=== PATIENT | male | born 1960 | race Caucasian/White ===

== ENCOUNTER 2017-11-21 19:32 | Inpatient (IN) | payer OTHER ==
[~2017-11-21] VITALS: Ht 172.7 cm; Wt 101.1 kg
[~2017-11-21 19:32] MED LIST: ASPIR-LOW81 M1
[2017-11-21 20:41] LABS: HEMATOCRIT 39.9 % (38.0-50.0); HEMOGLOBIN 14.8 G/DL (12.5-16.6); MCH 34.5 PG (29.0-34.0); MCHC 37.1 G/DL (30.0-36.0); PLATELET COUNT 203 K/uL (156-360); RBC DIS.WIDTH-CV 12.5 % (11.8-14.6); RBC DIS.WIDTH-SD 42.6 % (39-53); RED BLOOD COUNT 4.29 M/uL (4.00-5.50); WHITE BLOOD COUNT 6.9 K/uL (4.1-10.2)
[2017-11-21 20:51] LABS: PTT 26.1 SEC (25-37)
[2017-11-21 20:53] LABS: ALBUMIN 4.1 g/dL (3.2-4.8)
[2017-11-21 20:54] LABS: CHLORIDE 107 mEq/L (99-109); POTASSIUM 4.4 mEq/L (3.7-5.4); SODIUM 139 mEq/L (136-147)
[2017-11-21 20:56] LABS: GLUCOSE 91 mg/dL (70-99); TOTAL PROTEIN 7.6 g/dL (6.4-8.3)
[2017-11-21 20:58] LABS: TOTAL BILIRUBIN 0.8 mg/dL (0.0-1.0)
[2017-11-21 20:59] LABS: ALKALINE PHOSPHATASE 74 IU/L (3-129)
[2017-11-21 21:00] LABS: CREATININE 1.3 mg/dL (0.6-1.3); GFR ESTIMATE (CALCULATED) > 59 mL/min/ (58.99-99999)
[2017-11-21 21:01] LABS: AST (GOT) 46 IU/L (2-34); UREA NITROGEN (BUN) 18 mg/dL (9-23)
[2017-11-21 21:02] LABS: ALT (GPT) 35 IU/L (3-49)
[2017-11-21 21:03] LABS: LIPASE 26 U/L (1.0-51.0)
[2017-11-21 21:11] LABS: TROP-I INTERPRETATION NEGATIVE; TROPONIN-I < 0.01 ng/mL (0.0-0.30)
[2017-11-21 22:24] LABS: APPEARANCE CLEAR ((CLEAR)); BILIRUBIN NEGATIVE; BLOOD NEGATIVE; COLOR COLORLESS ((YELLOW)); GLUCOSE (STRIP) NEGATIVE; KETONES NEGATIVE; LEUKOCYTES NEGATIVE; NITRITE NEGATIVE; PROTEIN (STRIP) NEGATIVE; SPECIFIC GRAVITY 1.004 (1.000-1.030); UROBILINOGEN 0.2 MG/DL (0.2-1.0)
[2017-11-21 22:33] LABS: AMPHETAMINE NEGATIVE (500 ng/mL); BARBITURATES NEGATIVE (200 ng/mL); BENZODIAZEPINES NEGATIVE (150 ng/mL); BUPRENORPHINE NEGATIVE (10 ng/mL); COCAINE NEGATIVE (150 ng/mL); METHADONE NEGATIVE (200 ng/mL); METHAMPHETAMINE NEGATIVE (500 ng/mL); OPIATES (MORPHINE) NEGATIVE (100 ng/mL); OXYCODONE NEGATIVE (100 ng/mL); PHENCYCLIDINE NEGATIVE (25 ng/mL); PROPOXYPHENE NEGATIVE (300 ng/mL); THC CANNABINOIDS NEGATIVE (50 ng/mL); TRICYCLIC ANTIDEPRESSANTS NEGATIVE (300 ng/mL)
[2017-11-21] MEDS ORDERED: NAPROXEN500 MG PO (22:54)
[2017-11-22 00:21] VITALS: BP 148/101
[2017-11-22 02:51] LABS: TROP-I INTERPRETATION NEGATIVE; TROPONIN-I < 0.01 ng/mL (0.0-0.30)
[2017-11-22 03:18] LABS: HDL CHOLESTEROL 57 MG/DL (Desirable>=40); LDL CHOLESTEROL 86 mg/dL (Desirable<100); NON-HDL CHOLESTEROL 111 mg/dL (Desirable<160); TOTAL CHOLESTEROL 168 mg/dL (Desirable<200); TRIGLYCERIDES 127 MG/DL (Normal: <150)
[2017-11-22 04:20] VITALS: BP 122/72
[2017-11-22 08:00] VITALS: BP 131/78
[2017-11-22 09:55] LABS: TROP-I INTERPRETATION NEGATIVE; TROPONIN-I < 0.01 ng/mL (0.0-0.30)
[2017-11-22 10:05] LABS: HEMOGLOBIN A1c (GLYCOHEMOGLOB) 4.4 % (Below 5.7)
[2017-11-22 12:13] VITALS: BP 132/83
[2017-11-22 15:24] VITALS: BP 148/84
[2017-11-22 19:25] VITALS: BP 140/83
[2017-11-23 00:02] VITALS: BP 143/83
[2017-11-23 03:31] VITALS: BP 147/85
[2017-11-23 06:05] LABS: BASOPHIL (%) 1.1 % (0-1); BASOPHIL COUNT 0.1 K/uL (0-0.1); EOSINOPHIL COUNT 0.3 K/uL (0-0.3); HEMATOCRIT 40.8 % (38.0-50.0); HEMOGLOBIN 14.4 G/DL (12.5-16.6); IMMATURE GRANULOCYTE (%) 1.9 % (0.0-0.7); LYMPHOCYTE (%) 25.5 % (15-42); LYMPHOCYTE COUNT 1.4 K/uL (1.0-2.8); MCH 32.9 PG (29.0-34.0); MCHC 35.3 G/DL (30.0-36.0); MCV 93.2 FL (86-99); MONOCYTE COUNT 0.6 K/uL (0-0.8); NEUTROPHIL (%) 55.5 % (45-76); NEUTROPHIL COUNT 3.1 K/uL (1.8-6.4); PLATELET COUNT 180 K/uL (156-360); RBC DIS.WIDTH-CV 12.5 % (11.8-14.6); RBC DIS.WIDTH-SD 42.5 % (39-53); RED BLOOD COUNT 4.38 M/uL (4.00-5.50); WHITE BLOOD COUNT 5.7 K/uL (4.1-10.2)
[2017-11-23 06:45] LABS: CHLORIDE 103 MEQ/L (99-109); CREATININE 1.3 MG/DL (0.6-1.3); GFR ESTIMATE (CALCULATED) > 59 mL/min/ (58.99-99999); GLUCOSE 89 mg/dL (70-99); POTASSIUM 4.3 MEQ/L (3.7-5.4); SODIUM 138 MEQ/L (136-147); UREA NITROGEN (BUN) 19 mg/dL (9-23)
[2017-11-23 07:02] VITALS: BP 137/72
[2017-11-23] MEDS ORDERED: ASPIRIN EC325 MG PO (08:05)
[2017-11-23] MEDS ORDERED: ATORVASTATIN CA80 MG PO (08:05)
[2017-11-23] MEDS ORDERED: LISINOPRIL5 MG PO (08:05)
[2017-11-23] MEDS ORDERED: APRESOLINE10 MG PO (08:08)
== END 2017-11-23 11:46 | disposition home or self-care (01) | DRG 65 ==
LOC: EME → EDBD 19:32 → EDOF 23:01 → 5SOUTH 23:01 → ENRESERV 23:10 → 5SOUTH 11-22 00:12
PROVIDERS: Emergency Medicine; Internal Medicine; Physician Assistant Medical
DX: I63.40 Cerebral infarction due to embolism of unspecified cerebral artery (principal); H53.461 Homonymous bilateral field defects, right side; I16.1 Hypertensive emergency; I10 Essential (primary) hypertension; F07.81 Postconcussional syndrome; F10.10 Alcohol abuse, uncomplicated; E04.1 Nontoxic single thyroid nodule; E66.3 Overweight; Z88.0 Allergy status to penicillin; Z82.49 Family history of ischemic heart disease and other diseases of the circulatory system; Z68.33 Body mass index [BMI] 33.0-33.9, adult
CPT/HCPCS: 70496; 70498; 70551; 71045; 71275; 80047; 80048; 80053; 80061; 81003; 83036; 83690; 84484; 85025; 85027; 85610; 85730; 86850; 86900; 86901; 93005; 93306; 99281; 99285; J1200; J1644; J2270; J7030